=== PATIENT | female | born 1985 | race Caucasian/White ===

== ENCOUNTER 2020-01-01 19:57 | Emergency (ER) | payer OTHER ==
[2020-01-01 20:23] VITALS: BP 154/93; PULSE 96; TEMP 98.6; BMI 41.5
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
== END 2020-01-01 22:23 | disposition home or self-care (01) ==
LOC: JER 19:57 → JERFT 19:57
DX: S00.83XA Contusion of other part of head, initial encounter (principal)
CPT/HCPCS: 70486-TC; 73562-TC-RT-FY; 99284-25

== ENCOUNTER 2022-03-15 17:35 | Emergency (ER) | payer OTHER ==
[2022-03-15 17:55] VITALS: BP 121/76; PULSE 77; RESP 18; TEMP 99.1; BMI 38.2
[2022-03-15 18:21] LABS: HCG,QUALITATIVE URINE Negative
[2022-03-15 18:35] LABS: HEMATOCRIT 40.4 % (32.4-45.2); HEMOGLOBIN 14.3 G/dL (10.7-15.3); MCH 31.4 pg (25.7-33.7); MCHC 35.3 g/dl (32.0-36.0); MEAN PLT VOLUME 7.6 fl (7.5-11.1); PLATELET COUNT 306.7 10^3/uL (134-434); RBC 4.54 10^6/uL (3.60-5.2); RDW 13.1 % (11.6-15.6); WHITE BLOOD COUNT 8.5 10^3/uL (4.0-10.8)
[2022-03-15] MEDS ORDERED: ACETAMINOPHEN 325 MG TABLET (FP) PO ONE (18:37)
[2022-03-15] MEDS ORDERED: ACETAMINOPHEN 325 MG TABLET (FP) ONE (18:48)
[2022-03-15 19:01] LABS: ALBUMIN 4.1 g/dl (3.4-5.0); BILIRUBIN,TOTAL 0.6 mg/dl (0.2-1); CALCIUM 9.4 mg/dl (8.5-10); CREATININE 0.7 mg/dl (0.55-1.3); TOT PROT 6.9 g/dl (6.4-8.2)
[2022-03-15 20:17] LABS: PLATELET ESTIMATE ADEQUATE
== END 2022-03-15 21:30 | disposition home or self-care (01) ==
LOC: FER 17:35
DX: R10.9 Unspecified abdominal pain (principal)
CPT/HCPCS: 36415; 71046-TC-FY; 74176-TC; 80053; 81003; 84703; 85027; 87086; 99285-25